=== PATIENT | female | born 1960 | race Caucasian/White ===

== ENCOUNTER 2022-02-14 13:24 | Emergency (ER) | payer OTHER ==
[~2022-02-14] VITALS: Ht 175.3 cm; Wt 81.7 kg
--- OUTSIDE RECORDS SUMMARY | 2022-02-14 13:28 | XMS ---
PreManage Notification: FABIO HICKS [employer] Administrative Assistant Events No recent Security Events currently on file [facility] There are no care providers on record at this time. Yana has no Care Guidelines for this patient. Kade VISIT COUNT (12 MO.) 1 DAVE Vázquez TOTAL 1 NOTE: Visits indicate total known visits. ED/C VISIT TRACKING (12 MO.) 02/14/2022 13:27 DAVE Veliz OR TYPE: Emergency COMPLAINT: - L KNEE, BACK PAIN INPATIENT VISIT TRACKING (12 MO.) No inpatient visits to display in this time frame [email or web address]
[2022-02-14] MEDS ORDERED: LISINOPRIL2.5 MG (13:59)
[2022-02-14] MEDS ORDERED: NORVASC5 MG (14:00)
[2022-02-14] MEDS ORDERED: HYDROXYCHLOROQ100 GM (14:01)
[2022-02-14] MEDS ORDERED: VENTOLIN HFA18 GM (14:01)
[2022-02-14] MEDS ORDERED: ULTRAM50 MG PO (15:03)
== END 2022-02-14 15:21 | disposition home or self-care (01) ==
LOC: ED 13:24
DX: M54.42 Lumbago with sciatica, left side (principal); Z88.8 Allergy status to other drugs, medicaments and biological substances; Z79.899 Other long term (current) drug therapy
CPT/HCPCS: 96372; 99283; J1170